=== PATIENT | female | born 1985 | race Caucasian/White ===

== ENCOUNTER 2018-01-16 18:16 | Emergency (ER) | payer SELFPAY ==
[2018-01-16] MEDS ORDERED: Ketorolac Tromethamine 30 MG/ML VIAL ONE (20:16)
--- NOTE | 2018-01-16 21:11 | RAD ---
TWO VIEWS LEFT FOREARM: 01/16/18 AP and lateral views left forearm is obtained. HISTORY: Patient pulled left forearm by a dog caught between two metal bars with left forearm pain. AP and lateral views of the left forearm is obtained. The left forearm is unremarkable. No evidence of fractures, subluxations or bony lesions seen. IMPRESSION: Normal two views left forearm. POS: [facility]
== END 2018-01-16 20:20 | disposition home or self-care (01) ==
LOC: ERS 18:16
DX: S40.022A Contusion of left upper arm, initial encounter (principal); W23.0XXA Caught, crushed, jammed, or pinched between moving objects, initial encounter
CPT/HCPCS: 96372; J1885